=== PATIENT | female | born 1950 | race Caucasian/White ===

== ENCOUNTER 2016-12-15 02:43 | Inpatient (IN) | payer MEDICARE, OTHER ==
[~2016-12-15] VITALS: Ht 157.5 cm; Wt 45.4 kg
--- NOTE | ~2016-12-15 | HP ---
Unit #: [id number] #: [id number] Patient: HARJINDER BOB [id number] [id number] [facility]. [place], [place] [address] [id number] I MR#: [id number] NAME: HARJINDER BOB. ROOM: 49313 Age: 66 Sex: F Admission Date: 12/15/2016 : 1950 Attending Physician: Lisa Montano M.D. Primary Care Physician: No Primary Care Physician HISTORY AND PHYSICAL CHIEF COMPLAINT Left leg wound. HISTORY OF PRESENT ILLNESS The patient is a 66-year-old female who presents to the [facility] emergency department with a left lower extremity wound and lower extremity redness. She states it started on the of this month and that she went to a clinic where she was given an oral antibiotic that she "could not take" and some "salve" and has not improved. She states that she has in fact worsened. This is associated with worsening redness and severe pain. It is now scabbed and oozing somewhat. She denies fevers, nausea and vomiting and chills at this time. PAST MEDICAL HISTORY Anxiety, depression and post traumatic stress disorder, GERD. PAST SURGICAL HISTORY She has had surgery. She has had a hysterectomy for uterine cancer. SOCIAL HISTORY The patient smokes, denies alcohol and illicit drug use. She lives alone with her cat. FAMILY HISTORY Reviewed and noncontributory. ALLERGIES Aspirin and clindamycin. HOME MEDICATIONS 1. Zofran 4 mg p.o. q.6 h. p.r.n. 2. Pletal 100 mg p.o. b.i.d. 3. Phenergan 25 mg p.o. q.6 h. 4. Premarin 0.625 mg daily. 5. Xanax 1 mg p.o. t.i.d. 6. Doxepin 150 mg p.o. q.h.s. 7. Protonix 40 mg daily. 8. Percocet 10/325 one p.o. q.4 h. p.r.n. back pain. REVIEW OF SYSTEMS A 10-point review of systems obtained, negative except as per HPI. PHYSICAL EXAMINATION Unit #: [id number] #: [id number] Patient: HARJINDER BOB VITAL SIGNS: Temperature 98.0. Pulse 99. Blood pressure 139/75. GENERAL: This is a 66-year-old male in no acute distress, appears stated age. HEENT: Pupils are equally round. Extraocular movements intact. Mucous membranes dry. NECK: Supple. No JVD. No lymphadenopathy. CARDIAC: Regular rate and rhythm. No murmurs, gallops or rubs. LUNGS: Clear to auscultation bilaterally. ABDOMEN: Nontender, nondistended. Bowel sounds positive. EXTREMITIES: She has left lower extremity crusted ulcer with associated redness in soft tissue surrounding; otherwise, no rashes, bruised or ulcers MUSCULOSKELETAL: No muscle or joint pain. No muscle or joint swelling. DIAGNOSTIC STUDIES LABORATORY: White count is 22. ASSESSMENT AND PLAN 1. Right lower extremity cellulitis: The patient has been started on vancomycin. 2. Right lower extremity wound: Will ask the wound nurse to see. 3. Acute pain: Started the patient on IV morphine. 4. Prophylaxis: The patient has been started on Lovenox. Dictated by Aleisha Banegas/vianca TD: 12/15/2016 18:37 JOB #: [id number] HISTORY AND PHYSICAL Page 1 of 1 X Ricky Ham MD X HISTORY AND PHYSICAL
--- NOTE | ~2016-12-15 | CR252 ---
[facility] A Service of [facility] & [facility] RADIOLOGY TEXT RESULTS PATIENT: HARJINDER BOB LOCATION: [place] [address] : [birth year] UNIT #: [id number] AGE: [address]: Lisa Montano MD SEX: F ORDER DR: [id number] [facility] [address] [facility]. [place], [place] [address] [id number] I MR#: [id number] Acc #: [id number] NAME: HARJINDER BOB : 1950 SEX: F STUDY DATE/TIME: 12/15/2016 3:55 UNIT: CEDOF ROOM: 85298 STUDY DESCRIPTION: CR Tibia and Fibula 2 Views Lt Attending Physician: Lisa Montano M.D. Ordering Physician: Parish Song M.D. Primary Care Physician: Primary Care Physician No MEDICAL IMAGING REPORT This report is preliminary unless electronic signature is present EXAM Two views left tibia-fibula. DATE 12/15/2016 HISTORY Open wound, possible bite wound today. Suspected spider bite with infection. FINDINGS There is no evidence of fracture, dislocation, or radiopaque foreign body. IMPRESSION Normal two views of the left tibia and fibula. Dictated by... Rayna Ingram M.D. THIS IS AN ELECTRONICALLY VERIFIED REPORT Rayna Ingram M.D. at 12/15/2016 9:39 PM [facility] TD: 12/15/2016 18:48 JOB #: [id number] MEDICAL IMAGING REPORT Page 1 of 1 COPY
--- NOTE | ~2016-12-15 | DS ---
Unit #: [id number] #: [id number] Patient: HARJINDER BOB [id number] [address] [address] [id number] I MR#: [id number] NAME: HARJINDER BOB. ROOM: 226 Age: 66 Sex: F Admission Date: 12/15/2016 : 1950 Discharge Date: Attending Physician: Michelle Lizama M.D. Primary Care Physician: No Primary Care Physician DISCHARGE SUMMARY DISCHARGE DIAGNOSES 1. Left leg acute on chronic wound with cellulitis. 2. Anxiety. 3. Depression. 4. Posttraumatic stress disorder. 5. Chronic pain following pain management. 6. Gastroesophageal reflux disease. 7. Mild protein malnutrition. CONSULTATION [facility]. PROCEDURE None. DIAGNOSTIC STUDIES LABORATORY: Sodium 136, potassium 4.6, creatinine 0.5. WBC 11.9, hemoglobin 13, platelets 672,000. ALLERGIES None. CURRENT MEDICATIONS 1. Doxepin 150 mg at bedtime. 2. Zofran 4 mg q.6 p.r.n. nausea. 3. Phenergan 25 q.6 p.r.n. nausea. 4. Pletal 100 mg p.o. b.i.d. 5. Xanax 1 mg p.o. three times daily. 6. Premarin 0.625 mg p.o. daily. 7. Percocet 10 mg q.4 p.r.n. pain. 8. Dakin's one-fourth strength solution apply topically q.8. 9. Protonix 40 daily. 10. Doxycycline 100 p.o. b.i.d. for five days. HOSPITALIZATION COURSE A 66 year old admitted because of left leg wound. Left leg wound: Acute on chronic, associated with pain. Patient is seen by [facility]. They did not recommend any debridement. Told to continue with local wound care. Patient received IV vancomycin and Zosyn. No wound cultures. No blood cultures. The patient was on clindamycin before admission. Patient will be discharged on doxycycline. Continue with local wound care as per [facility] and follow with outpatient wound clinic in seven days. Call for appointment. Unit #: [id number] #: [id number] Patient: LISBETH,HARJINDER A Anxiety: Continue Xanax. Chronic pain: Patient needs to follow with her pain management. DISPOSITION Discharge home with home health. FOLLOWUP 1. Follow with PCP in one week time. 2. Local wound care per [facility]. 3. Follow with wound clinic in seven days' time, call for appointment. 4. Dressings at home b.i.d. Dictated by... Aleisha Mar TD: 12/18/2016 10:25 JOB #: [id number] DISCHARGE SUMMARY Page 1 of 1 X Michelle Lizama MD X DISCHARGE SUMMARY
--- NOTE | ~2016-12-15 | A ---
[facility] Nutrition Therapy DATE: 12/16/16 Patient: HARJINDER BOB Physician: MELLISSA Address: [address] Room/Bed: [address] [place] [address], Zip: [place] [address] Admit Date: 12/15/16 Date of : [birth year] Height: 5 2 Weight: 100 45.35 NUTRITIONAL ASSESSMENT: REASON: Low BMI + 4 points malnutrition risk score re: eating poorly, unintentional weight loss + MD consult re: nutrition Admitting dx: 66 y/o female admitted with LLE cellulitis PMH: Anxiety, depression, PTSD, GERD, smoker Anthropometrics: Ht: 62", Wt: 99 lbs, BMI: 18.1 (underweight), UBW: 105-110 lbs (per pt) Labs: Reviewed; nothing significant Meds: PPI, IV Abx, phenergan/zofran prn I/O & Bowel function: BM 12/13, c/o constipation Skin Integrity: LLE cellulitis/wound, no edema Estimated Nutrition Needs: Increased due to underweight status and weight loss Assessment: Chart reviewed, events noted. See admitting dx and PMH as stated above. Patient also has hx at [facility]. Although the pt's malnutrition risk screen documents 20 lb weight loss, this is inaccurate. Pt has lost approx. 5-10 lbs in an unknown time frame (4.7-9.5% body weight), which she herself states is due to difficulty walking on her left leg and pain which prevents her from adequately cooking and shopping. Confirms decreased PO intake and current weight of 99 lbs. She is not willing to fully participate in RD interview at this time as she is in a lot of pain and "feeling weird" on current pain medications. Wound care to assess today. She is currently on a regular diet, consumed ~75% of breakfast this morning per RD observation of tray in room. She is willing to drink Ensure shakes- will order. Dx: Unintentional weight loss r/t left leg pain, decreased ambulation AEB pt report of 5-10 lb weight loss in an unknown time frame with decreased PO intake, BMI 18.1. Intervention: Ensure shakes TID Monitoring, Evaluation and Goals: 1. PO intake > 50% of meals/supps. 2. Gradual weight loss towards a healthy BMI range. 3. Promote wound healing. [facility] Nutrition Therapy DATE: 12/16/16 Patient: HARJINDER Moon LISBETH Physician: MELLISSA Address: [address] Room/Bed: [address] [place] [address], Zip: [place] [address] Admit Date: 12/15/16 Date of : [birth year] Height: 5 2 Weight: 100 45.35 Monitor: per protocol, criteria to determine if above goals met Recommendations: 1. Agree with regular diet, encourage PO intake. RD ordering chocolate Ensure shakes TID to increase oral kcal/protein intake and promote weight gain. 2. Wound care prn. 3. Bowel regimen per MD noting constipation. RD will follow Mild nutrition risk Respectfully, Maliha Cat, MOHSEN, LD [employer] cc: client file
[~2016-12-15 02:43] MED LIST: CALCIUM 600 + D1 TAB PO; CIPRO PO; DOXEPIN HCL100 MG PO; K-DUR20 ME1 PO; LEVAQUIN PO; LIDODERM30 EA TOP; LIPITOR20 MG PO; METRONIDAZOLE PO; NEURONTIN PO; PHENERGAN PO; PLETAL100 MG PO; PREDNISONE PO; PREMARIN0.625 MG PO; PROTONIX PO; PROZAC40 MG PO; XANAX1 MG PO
[2016-12-15 04:07] LABS: BASOPHIL# 0.1 X10e3 (0-0.3); BASOPHIL% 0.3 % (0-2.5); DIFF IND YES; EOSINOPHIL% 0.1 % (0.0-7.0); HEMATOCRIT 38.9 % (35.0-45.0); HEMOGLOBIN 13.2 gm/dL (12.0-16.0); LYMPHOCYTE# 2.3 X10e3 (1.0-3.5); LYMPHOCYTE% 10.2 % (17.0-45.0); MEAN CELL VOLUME 96.1 FL (83-96); MEAN CORPUSCULAR HEMOGLOBIN 32.7 PG (28-34); MEAN PLATELET VOLUME 6.5 FL (6.5-11.5); MONOCYTE# 0.8 X10e3 (0-1.0); MONOCYTE% 3.6 % (3.0-12.0); NEUTROPHIL# 19.6 X10e3 (1.5-7.1); NEUTROPHIL% 85.8 % (40-75); PLATELET COUNT 727 X10e3 (140-420); RED BLOOD COUNT 4.05 X10e (3.90-5.30); RED CELL DISTRIBUTION WIDTH 14.9 % (11.0-15.5); WHITE BLOOD COUNT 22.9 X10e3 (4.0-10.5)
[2016-12-15 04:23] LABS: ALCOHOL BLOOD <5 mg/dL (0); BLOOD UREA NITROGEN 8 mg/dL (9-23); CARBON DIOXIDE 26 mmol/L (22-31); CHLORIDE 103 mmol/L (100-111); CREATININE SERUM 0.5 mg/dL (0.6-1.4); GLOM FILT RATE Estimated 101.6 mL/min (>60); GLUCOSE FASTING 119 mg/dL (70-110); POTASSIUM 3.8 mmol/L (3.5-5.1); SODIUM 137 mmol/L (135-145)
[2016-12-15 04:26] LABS: PLATELET ESTIMATE INCREASED (NORMAL)
[2016-12-15 04:27] LABS: ANISOCYTOSIS SL
[2016-12-15] MEDS ORDERED: CLEOCIN HCL300 M1 PO (05:46)
[2016-12-15] MEDS ORDERED: PLETAL100 M1 PO (05:47)
[2016-12-15] MEDS ORDERED: ZOFRAN PO (05:47)
[2016-12-15] MEDS ORDERED: PHENERGAN25 MG PO (05:48)
[2016-12-15] MEDS ORDERED: PREMARIN0.625 MG PO (05:48)
[2016-12-15] MEDS ORDERED: DOXEPIN HCL50 M1 PO (05:49)
[2016-12-15] MEDS ORDERED: XANAX1 MG PO (05:49)
[2016-12-15] MEDS ORDERED: PROTONIX PO (05:50)
[2016-12-15 07:53] LABS: BASOPHIL# 0.1 X10e3 (0-0.3); BASOPHIL% 0.4 % (0-2.5); EOSINOPHIL% 0.1 % (0.0-7.0); HEMATOCRIT 37.6 % (35.0-45.0); HEMOGLOBIN 12.7 gm/dL (12.0-16.0); LYMPHOCYTE# 2.6 X10e3 (1.0-3.5); LYMPHOCYTE% 12.3 % (17.0-45.0); MEAN CELL VOLUME 96.8 FL (83-96); MEAN CORPUSCULAR HEMOGLOBIN 32.7 PG (28-34); MEAN CORPUSCULAR HGB CONC 33.8 g/dL (30-36); MEAN PLATELET VOLUME 6.6 FL (6.5-11.5); MONOCYTE# 0.5 X10e3 (0-1.0); MONOCYTE% 2.5 % (3.0-12.0); NEUTROPHIL# 18.2 X10e3 (1.5-7.1); NEUTROPHIL% 84.7 % (40-75); PLATELET COUNT 726 X10e3 (140-420); RED BLOOD COUNT 3.88 X10e (3.90-5.30); WHITE BLOOD COUNT 21.5 X10e3 (4.0-10.5)
[2016-12-15 07:54] LABS: DIFF IND NO
[2016-12-15 08:17] LABS: CALCIUM SERUM 8.6 mg/dL (8.4-10.2); CREATININE SERUM 0.5 mg/dL (0.6-1.4); GLOM FILT RATE Estimated 101.6 mL/min (>60); POTASSIUM 3.2 mmol/L (3.5-5.1)
[2016-12-15] MEDS ORDERED: PERCOCET10 PO (14:32)
[2016-12-16 08:25] LABS: HEMATOCRIT 37.1 % (35.0-45.0); HEMOGLOBIN 12.4 gm/dL (12.0-16.0); MEAN CELL VOLUME 96.7 FL (83-96); MEAN CORPUSCULAR HEMOGLOBIN 32.3 PG (28-34); MEAN CORPUSCULAR HGB CONC 33.4 g/dL (30-36); MEAN PLATELET VOLUME 6.6 FL (6.5-11.5); RED BLOOD COUNT 3.84 X10e (3.90-5.30); RED CELL DISTRIBUTION WIDTH 15.1 % (11.0-15.5)
[2016-12-16 09:23] LABS: ALBUMIN SERUM 2.7 g/dL (3.5-5.0); BILIRUBIN,TOTAL 0.1 mg/dL (0.2-2.0); BUN/CREATININE RATIO 23.33; CREATININE SERUM 0.3 mg/dL (0.6-1.4); GLOM FILT RATE Estimated 120.2 mL/min (>60); POTASSIUM 3.8 mmol/L (3.5-5.1); PROTEIN TOTAL SERUM 7.5 g/dL (6.0-8.3)
[2016-12-17 05:25] LABS: HEMATOCRIT 38.3 % (35.0-45.0); MEAN CELL VOLUME 96.2 FL (83-96); MEAN CORPUSCULAR HEMOGLOBIN 32.7 PG (28-34); MEAN PLATELET VOLUME 7.2 FL (6.5-11.5); RED BLOOD COUNT 3.98 X10e (3.90-5.30); RED CELL DISTRIBUTION WIDTH 14.7 % (11.0-15.5); WHITE BLOOD COUNT 11.9 X10e3 (4.0-10.5)
[2016-12-17 06:19] LABS: CALCIUM SERUM 9.5 mg/dL (8.4-10.2); CREATININE SERUM 0.5 mg/dL (0.6-1.4); GLOM FILT RATE Estimated 101.6 mL/min (>60); POTASSIUM 4.6 mmol/L (3.5-5.1)
[2016-12-18] MEDS ORDERED: ZOFRAN PO (10:47)
[2016-12-18] MEDS ORDERED: NICOTINE1 EAC2 TD (10:47)
[2016-12-18] MEDS ORDERED: DOXYCYCLINE HY100 M4 PO (10:53)
== END 2016-12-18 11:46 | disposition home health service (06) | DRG 603 ==
LOC: CED 02:43 → CEDOF 04:53 → C2A 04:53 → CEDOF 05:03 → CED 05:03 → C2A 18:56
PROVIDERS: Emergency Medicine; Internal Medicine
DX: L03.116 Cellulitis of left lower limb (principal); E44.1 Mild protein-calorie malnutrition; Z68.1 Body mass index [BMI] 19.9 or less, adult; F41.9 Anxiety disorder, unspecified; F32.9 Major depressive disorder, single episode, unspecified; F43.10 Post-traumatic stress disorder, unspecified; G89.29 Other chronic pain; K21.9 Gastro-esophageal reflux disease without esophagitis; F17.200 Nicotine dependence, unspecified, uncomplicated; Z88.1 Allergy status to other antibiotic agents; D64.9 Anemia, unspecified
CPT/HCPCS: 36415; 73590; 80048; 80053; 80202; 85025; 85027; 96365; 96375; 99285; G0480; J1650; J2270; J2543; J3370